=== PATIENT | male | born 1965 | race Caucasian/White ===

== ENCOUNTER → 2024-10-10 12:59 | Outpatient (REF) | payer OTHER, SELFPAY | LOC: HWRAD 12:59 | PROVIDERS: ATTENDING PHYSICIAN Physician Assistant; FAMILY PHYSICIAN Physician Assistant Medical | DX: E03.9 Hypothyroidism, unspecified (principal); C73 Malignant neoplasm of thyroid gland; E89.0 Postprocedural hypothyroidism | CPT/HCPCS: 76536 ==

== ENCOUNTER 2025-10-06 17:06 | Inpatient (IN) | payer BC, SELFPAY ==
[2025-10-06] VITALS (22 sets, daily range): BP systolic 102–152; BP diastolic 57–96; BMI 38.4; BMI 37.3
[2025-10-06] MEDS: CORDARONE IV (14:47)
[2025-10-06] MEDS: CORDARONE 259 MG IV (14:51)
[2025-10-06 14:53] LABS: Hematocrit 46.0 % (39.0-52.0); Hemoglobin 15.2 g/dL (13.0-18.0); Mean Corp Hgb Conc. 33.0 g/dL (33.0-37.0); Mean Corpuscular Volume 85.5 fL (80.0-94.0); Platelet Count 205 10^3/uL (130-400); Red Cell Dist. Width 14.0 % (11.5-14.5)
[2025-10-06] MEDS: LOW STRENGTH ASPIRIN 324 MG PO (15:02)
[2025-10-06 15:03] LABS: ALT (SGPT) 97 U/L (0-50); AST (SGOT) 94 U/L (17-59); Albumin 3.7 g/dl (3.5-5.0); Alkaline Phosphatase 56 U/L (38-126); Blood Urea Nitrogen 23 mg/dl (9-20); Calcium 8.0 mg/dl (8.4-10.2); Carbon Dioxide 16 mmol/L (22-30); Chloride 103 mmol/L (98-107); Estimated Creatinine Clearance 72 ml/min; Glucose 188 mg/dl (70-99); Potassium 3.6 mmol/L (3.5-5.1); Sodium 139 mmol/L (135-145); Total Protein 6.1 g/dl (6.3-8.2); eGFR 48.41
[2025-10-06] MEDS: MAGNESIUM SULFATE 50 IV (15:05)
[2025-10-06 15:09] LABS: Troponin I 0.048 ng/ml
--- NOTE | 2025-10-06 15:11 | ED.GENMED ---
History of Present Illness
General
Chief Complaint: Cardiac Symptoms
Time Seen by Provider: 10/06/25 14:27
History of Present Illness
History of Present Illness:
Patient is a 60-year-old male with history of thyroid cancer in remission, WENDY, hypertension presenting to the emergency department after ROSC. Per medics patient was complaining of lightheadedness dizziness and had a syncopal event. He had a
witnessed cardiac arrest. Bystander CPR was initiated. Initially fire department on scene with 2 shocks. Once medics arrived they gave additional 6 shocks. There was concern for V-fib V. tach and torsades. He did get a total of 3 epi, 300
amiodarone bicarb. Total downtime was 20 minutes. They were about to intubate patient when he was more awake and pulling at their hands so intubation was held off. At this time patient is been complaining of ongoing chest pain. He did have chest
pain prior to the event as well. No shortness of breath. No numbness tingling.
Phy Exam
Physical Exam
Physical Exam:
GENERAL: Appears unwell
HEENT: normocephalic, extraocular movements intact, moist oral mucosa
NECK: normal inspection
RESPIRATORY: Slightly tachypneic, clear to auscultation bilaterally, no crepitus
CARDIOVASCULAR: regular rate and rhythm
ABDOMEN/: soft, non-distended, non-tender to palpation, no rebound or guarding
EXTREMITIES: non-tender, no edema/swelling
NEUROLOGIC: awake and alert, confused, moves all extremities
SKIN: warm
Course
Orders/Labs/Results
Orders:
Orders
10/06/25 14:25
Amiodarone [Cordarone] 300 mg .ROUTE .STK-MED ONE
Sodium Bicarbonate 100 meq .ROUTE .STK-MED ONE
10/06/25 14:28
Electrocardiogram (*1) Urgent
Reason for Study: Chest Pain
Cardiac Monitoring- Treatment ONCE
EKG- Treatment ONCE
IV Insert/Care/Rem.- Treatment PRN
Chest X-ray Portable [CR Chest Portable - 1 View] Urgent
Comment:
Reason For Exam: cpr post cost
Reason Study Needs to be Portable: Patient Unstable
O2 Therapy [RESP] Urgent
Titrate/Wean O2 to maintain O2 sat greater than (%): 90
Special Instructions: Maintain sats >/=90%
Pulse Ox/spot Check [RESP] Urgent
Quantity: 1
Special Instructions: ON ROOM AIR
10/06/25 14:29
Amiodarone [Cordarone] 450 mg DEXTROSE 5% PVC-free BAG [D5W PVC-free BAG] 250 ml IV NOW
Initial Dose in mg/min:: 1
Duration of initial dose (hours):: 6
Subsequent dose in mg/min:: 0.5
Duration of subsequent dose (hours):: 18
Maximum dose in mg/min:: 1
Hold and notify provider if:: Heart rate < 60 BPM or SBP < 90 mmHg or MAP < 60 mmHg
10/06/25 14:30
Complete Blood Count/With Diff Urgent
Comprehensive Metabolic Panel Urgent
Free T4 Urgent
Magnesium Urgent
Comment: ADD ON
Manual Differential Urgent
TSH Reflex To Free T4 Urgent
Troponin I Urgent
10/06/25 14:46
Add On- LAB Urgent
Tests Added?: magnesium level
EPINEPHrine PF [Adrenalin] 1 mg .ROUTE .STK-MED ONE
10/06/25 14:49
Amiodarone [Cordarone] 450 mg DEXTROSE 5% PVC-free BAG [D5W PVC-free BAG] 250 ml IV NOW
Initial Dose in mg/min:: 1
Duration of initial dose (hours):: 6
Subsequent dose in mg/min:: 0.5
Duration of subsequent dose (hours):: 18
Maximum dose in mg/min:: 1
Hold and notify provider if:: Heart rate < 60 BPM or SBP < 90 mmHg or MAP < 60 mmHg
10/06/25 14:57
Electrocardiogram (*1) Urgent
Reason for Study: Chest Pain
Magnesium Sulfate 2 Gram/50 ml [Magnesium Sulfate] 2 gram in 50 ml IV NOW
10/06/25 14:58
EKG- Treatment ONCE
10/06/25 Dinner
NPO
Allow oral meds: Yes
Allow clear liquids: Sips of Clears
NPO with Ice Chips: Yes
10/06/25 15:01
Aspirin Chewable [Low Strength Aspirin] 324 mg PO NOW STA
10/06/25 15:16
Aspirin Chewable [Low Strength Aspirin] 324 mg .ROUTE .STK-MED ONE
10/06/25 15:17
Heparin 4,000 units IV NOW STA
Pharmacy Request to Place See Dose Instructions PO NOW STA
Discontinue all Active Warfarin orders?: Yes
10/06/25 15:18
Ondansetron Injectable [Zofran] 4 mg .ROUTE .STK-MED ONE
10/06/25 15:19
CT Cervical Spine W/o Iv Contr Urgent
Comment:
Reason For Exam: fall, syncopal event
CT Head W/o Iv Contrast Urgent
Comment:
Reason For Exam: rosc, syncopal event, hit head
Ondansetron Injectable [Zofran] 4 mg IV NOW STA
10/06/25 15:20
CT Chest PE Study Urgent
Comment:
Reason For Exam: syncopal event, chest pain
10/06/25 15:30
Heparin 75845 Units/250 ml 25,000 units in 250 ml IV PER PROTOCOL
Weight to be used for heparin protocol in kilograms (kg):: 139.2
Protocol:: Cardiac Tx/Acute Coronary
PTT Goal Range to be used:: PTT 73 to 111 seconds
Order type:: Initial
INITIAL Infusion Dose (UNITS/KG/hr) & then follow protocol:: 12 units/kg/hr
Infusion Dose in UNITS/hr & then follow protocol (UNITS/hr):: 1,000
INFUSION RATE in mL/hr & then follow protocol (mL/hr):: 10
PTT less than or equal to 64 seconds:: Increase rate by 200 units/hr (+ 2 mL/hr)
PTT 64.1 to 72.9 seconds:: Increase rate by 100 units/hr (+ 1 mL/hr)
PTT 73 to 111 seconds:: Target Range. No change in rate.
PTT 111.1 to 130.9 seconds:: Decrease rate by 100 units/hr (- 1 mL/hr)
PTT 131 to 199.9 seconds:: HOLD for 1 hr. Then decrease rate by 200 units/hr (- 2 mL/hr)
PTT greater than or equal to 200 seconds:: HOLD for 2 hrs & Notify Provider. Then decrease by 200 units/hr (-
2 mL/hr)
Lab follow-up:: Each change, PTT q6h until 2 consecutive are therapeutic. Then PTT
daily.
10/06/25 15:54
Type And Crossmatch [Type+Screen] Urgent
PTT Urgent
Comment: Obtain baseline before beginning heparin infusion if not already collected
Prothrombin Time Urgent
10/06/25 16:[address] See Dose Instructions IV DIRECTED
10/06/25 16:35
Admit/Transfer Patient As Directed
Co-Sign Provider:
Level of Care: Inpatient admission
Assign to:: ICU
Physician / Group: Hospitalist
Diagnosis: [place]
Reason for Hospitalization: [place]
Expected length of stay greater than two midnights?: Yes
ELOS- Estimated Length of Stay in days: 5
I certify the patient meets the requirements for IP care: Yes
PRN Pain Medication Management As Directed
May give lesser potent ordered pain med per pt: Yes
preference::
Protocol:: Medication orders for pain may be administered in a
manner that supports deferring to patient preference
when the pt is:
- Requesting an ordered lesser potent pain medication.
Least to most potent pain medications are defined
as: acetaminophen < NSAID < tramadol < opioids
(morphine, oxycodone, hydromorphone).
- Requesting a lesser dose of the same medication IF
ORDERED.
- Requesting a less intrusive route of administration
if both routes are prescribed by the provider (PO <
IV).
10/06/25 16:36
Code Status As Directed
Resuscitation Status: Full Code
10/06/25 17:48
Electrocardiogram (*1) Q3H
Reason for Study: Chest Pain
Comment: at admission and Q3H for total of 3, to be done with each troponin
0.9% Sodium Chloride 1000 ml [Nss] 1,000 ml IV 100 mls/hr
Acetaminophen [Tylenol] 1,000 mg PO DAILYPRN PRN mild pain
10/06/25 17:48
Activity As Directed
Activity Level: Bedrest
ECG as needed As Directed
ECG as needed for:: Chest Pain
Additional Instructions:: with chest pain x 2 episodes.
INT (Intravenous Needle Therapy) As Directed
Comment: maintain peripheral IV access
Intake/ Output As Directed
Frequency: Per unit guidelines
Pneumatic Compression Sleeves As Directed
Type: Knee high
Vital Signs As Directed
Frequency: q4h
Weight As Directed
Frequency: Daily
O2 Therapy [RESP] Routine
Nasal Cannula Liter Flow: 2 LPM
Titrate/Wean O2 to maintain O2 sat greater than (%): 90
Special Instructions: 2 liters/minute as needed for pulse oximetry less than 90%
DX Deep Vein Thrombosis Video Routine
10/06/25 18:08
Glycohemoglobin (HgbA1c) Routine
Troponin I Q3H
Comment: at admit & Q3H for 3 total including ED draws, obtain ECG with each level
10/06/25 20:48
Electrocardiogram (*1) Q3H
Reason for Study: Chest Pain
Comment: at admission and Q3H for total of 3, to be done with each troponin
10/06/25 21:08
Troponin I Urgent
10/06/25 22:01
PTT Urgent
10/06/25 23:48
Electrocardiogram (*1) Q3H
Reason for Study: Chest Pain
Comment: at admission and Q3H for total of 3, to be done with each troponin
Troponin I Q3H
Comment: at admit & Q3H for 3 total including ED draws, obtain ECG with each level
10/06/25 23:59
Troponin I Q3H
Comment: at admit & Q3H for 3 total including ED draws, obtain ECG with each level
10/07/25 06:00
Echo 2D MMode Color/Doppler [Echo 2D MMode Color/Doppler] IN AM
Reason for Study: s/p arrest
Cardiovascular Evaluation IN AM
Complete Blood Count/No Diff IN AM
Comprehensive Metabolic Panel IN AM
Levothyroxine [Synthroid] 137 mcg PO DAILY@0600
10/07/25 08:00
Amlodipine [Norvasc] 2.5 mg PO DAILY
Aspirin 325 mg PO DAILY
Multivitamin [Theragran] 1 tablet PO DAILY
Rosuvastatin Calcium [Crestor] 5 mg PO DAILY
Abnormal Lab Results
10/06/25 10/06/25
14:30 15:54
WBC 18.7 H 10^3/uL
(4.8-10.8)
Abs Neuts (Manual) 10.2 H 10^3/uL
(1.4-6.5)
Band Neutrophils 10 H %
(0-3)
PT 15.4 H Sec
(11.4-14.6)
Carbon Dioxide 16 L mmol/L
(22-30)
BUN 23 H mg/dl
(9-20)
Creatinine 1.6 H mg/dL
(0.7-1.3)
Glucose 188 H mg/dl
(70-99)
Calcium 8.0 L mg/dl
(8.4-10.2)
Magnesium 2.5 H mg/dl
(1.6-2.3)
AST 94 H U/L
(17-59)
ALT 97 H U/L
(0-50)
Troponin I 0.048 H* ng/ml
Total Protein 6.1 L g/dl
(6.3-8.2)
TSH (Reflex) 5.14 H uIU/ml
(0.47-4.68)
10/06/25 14:30
10/06/25 14:30
Vital Signs
Initial and Last Documented VS:
Initial Vital Signs
Temp Pulse Resp BP Pulse Ox
96.4 F L 92 18 119/57 94
10/06/25 14:31 10/06/25 14:31 10/06/25 14:31 10/06/25 14:31 10/06/25 14:31
Last Documented Vital Signs
Temp Pulse Resp BP Pulse Ox
98.3 F 77 19 143/88 95
10/06/25 20:30 10/06/25 20:00 10/06/25 20:00 10/06/25 20:00 10/06/25 20:00
MDM/Problems Addressed
Differential Diagnosis Includes:
Patient is a 60-year-old male with history of thyroid cancer in remission, hypertension presenting to the emergency department as a ROSC patient after a V-fib arrest. On arrival patient awake talking and complaining of chest pain. Vitals are
notable for hypoxia which is requiring nasal cannula. Exam is otherwise reassuring. Concern for ACS/metabolic derangement. Will check blood work and serial EKGs. Initial EKG per my interpretation not consistent with STEMI. Aspirin was given for
ongoing chest pain. Initial troponin elevated. I did discuss with cardiology who stated no Sign Designer at this time. Portable chest x-ray per my interpretation without pneumothorax or obvious rib fracture. Discussed with hospitalist who accepted
patient to their service. Will obtain CT head neck PE protocol given the syncopal event prior to arrest. Critical troponin came back elevated. Discussed with cardiology. Will give heparin. Cardiology will evaluate patient at bedside.
*Pulse Oximetry
SaO2: 96
Nasal Cannula flow liters per minute: 6
Patient hypoxic: yes
*Critical Care Note
Total Time (30-74mins, 75-104mins- exclusive of procedures): 78
comment:
Critical care statement: A total of 78 minutes of critical care time was provided for this patient. This includes management of unstable vital signs, evaluation of the patient at bedside, reviewing the patient's pertinent medical records, ordering
and reviewing studies, arranging urgent treatment with development of a management plan, evaluating patient's response to treatment, frequent reassessment, and discussion with consultants. This time was separate from time utilized to perform the
aforementioned documented procedures.
ED Attending Note
-
Portions of this chart may have been created with voice recognition software.� Occasional wrong word or��sound alike� substitutions may have occurred due to the inherent limitations of voice recognition software.
Discharge Plan
Departure
Patient Disposition: Admit
Date of Disposition: 10/06/25
Time of Disposition: 15:16
Presentation/result/management discussed w/ accepting MD/DO: Hospitalist
Discharge Problem:
Cardiac arrest
Interventions
Interventions:
*Risk Screen - Suicide Last Done: 10/06/25 18:29
*General Assessment Last Done: 10/06/25 14:31
*Neglect/Abuse Screening Last Done: 10/06/25 14:31
*ED COVID-19 Vaccine History Last Done: 10/06/25 14:31
*ED Influenza Vaccine History Last Done: 10/06/25 14:31
[facility] Fall Risk Assessment Tool Last Done: 10/06/25 14:50
*Nursing Disposition Last Done: 10/06/25 17:52
ED- Pulmonary Assessment Last Done: 10/06/25 14:55
ED- Cardiac Assessment Last Done: 10/06/25 14:55
Discharge Date and Time
Discharge Date/Time: 10/06/25 17:53
[2025-10-06 15:19] LABS: Magnesium 2.5 mg/dl (1.6-2.3)
[2025-10-06] MEDS: ZOFRAN 4 MG IV (15:19)
[2025-10-06] MEDS: HEPARIN 4000 UNITS IV (16:00)
--- NOTE | 2025-10-06 16:00 | CON.CAR ---
Consultation
Consultation Request
Date/Time Consultation Requested: 10/06/2025 14: 30
Date/Time Consultation Performed: 10/06/2025 15: 15
Requesting Provider: Caesar
Performing Provider: Agus
Reason for Consultation: Status post arrest
Medical History
-
Chief Complaint: Status post arrest
History of Present Illness:
Mlies has a history of hypertension and sleep apnea as well as thyroid cancer status post resection. He normally does not exercise. He works in IT. He show pulse noted today. He was in a house later and went to let out the dog and felt very dizzy
and had arrest. Strip to the scene appeared to show torsades. Of note he denied chest pain before coming to the ER. He received CPR epinephrine and amiodarone and was shocked 8 times and is now in sinus rhythm. He complains of chest discomfort
that is worse with taking a deep breath
Past Medical History
Past Medical History: Other (See HPI)
Past Surgical History: Cholecystectomy and Other (Thyroid cancer resection, status post C4 and C5 discectomy)
Social History
Tobacco: Non-Smoker
Alcohol: None
Drug: None
Personal:
Living: With Family
Employment: Employed (in IT)
Family History
Family History: Other (No family history of premature CAD, father at 85 of colon cancer, mother at 88 of lung cancer)
Allergies / Home Medications
Allergy/AdvReac Type Severity Reaction Status Date / Time
No Known Allergies Allergy Verified 03/16/23 06:17
�Medication �Instructions �Recorded �Confirmed �Type
levothyroxine 150 mcg tablet 150 mcg PO DAILY 02/18/23 03/16/23 History
Saccharomyces boulardii 250 mg 250 mg PO BID #10 caps 03/17/23 Rx
capsule (Florastor)
acetaminophen 500 mg tablet 1,000 mg (2 x 500 mg) PO Q8H #0 03/17/23 03/16/23 Rx
tabs
cephalexin 500 mg tablet 500 mg PO QID #20 tabs 03/17/23 Rx
docusate sodium 100 mg capsule 100 mg PO BID #30 caps 03/17/23 Rx
pregabalin 75 mg capsule (Lyrica) 75 mg PO BID #15 caps 03/17/23 Rx
sennosides 8.6 mg tablet (Senna 17.2 mg (2 x 8.6 mg) PO BIDPRN PRN 03/17/23 Rx
Laxative) constipation #30 tabs
tramadol 50 mg tablet 50 mg PO Q6H PRN moderate-severe 03/17/23 Rx
pain #30 tabs
valsartan 320 1 tab PO DAILY #1 tab 03/17/23 03/16/23 Rx
mg-hydrochlorothiazide 25 mg tablet
Review of Systems
-
History Source: Patient
All other systems: Negative unless noted
Constitutional: No Symptoms
EENT: No Symptoms
Respiratory: No Symptoms
Cardiac: Chest Pain
Abdomen/GI: No Symptoms
: No Symptoms
Musculoskeletal: No Symptoms
Skin: No Symptoms
Neurological: Dizzy
Endocrine: No Symptoms
Hematologic/Lymphatic: No Symptoms
Physical Exam
Vital Signs
Temp Pulse Resp BP Pulse Ox
96.4 F L 85 19 109/73 96
10/06/25 14:31 10/06/25 14:50 10/06/25 14:50 10/06/25 14:50 10/06/25 15:16
Lab Results
10/06/25 14:30
10/06/25 14:30
Troponin I 0.048 ng/ml H* 10/06/25 14:30
General: Well developed, well nourished in NAD.
Neck: Supple, no JVD, HJR, carotids +2 B/L, no bruits bilaterally.
Heart: Non displaced PMI, RRR, no murmurs, No S3, S4, no rubs.
Lungs: Clear to auscultation bilaterally, no wheeze, rhonchi, rubs bilaterally,
normal expiratory phase.
Abdomen: Normal bowel sounds, soft, non-tender, non-distended.
Extremities: No clubbing, cyanosis or edema bilaterally.
Neuro: Grossly nonfocal, awake, alert and oriented x3.
Impression / Plan
-
Impression:
Status postcardiac arrest with possible torsades as initial rhythm
Chest pain worse with taking a deep breath possibly due to CPR
Hypertension
Sleep apnea
History of papillary carcinoma thyroid status post thyroidectomy
Renal insufficiency
Abnormal LFTs possible shock liver
CT of chest: Negative for pulmonary embolism
Impression:
Patient presented with cardiac arrest with rhythm appearing to be torsades
ECG okay at present
He has chest pain is worse with taking a deep breath
Will treat with IV heparin
Eventual catheterization but may need to wait because there is renal insufficiency at present
Critical care time 35 minutes so far
Data Reviewed
-
EKG: Tracing Personally Visualized and interpreted
Radiology: Report Reviewed by me
CT Scan: Report Reviewed by me
Medical Tests (Nuc Med, Echo etc): Report Reviewed by me
Labs: Labs Reviewed by me
Old Records: Reviewed
[2025-10-06] MEDS: HEPARIN 25000 UNITS/250 ML IV (16:02)
[2025-10-06 16:12] LABS: INR 1.21; PT 15.4 Sec (11.4-14.6)
[2025-10-06 16:13] LABS: APTT 32.5 Sec (23.4-35.0)
--- NOTE | 2025-10-06 16:18 | HPS.HSE ---
Family Physician
-
Family Physician: Yvette Dee
Chief Complaint
-
TN
History of Present Illness
60 man presents after ROSC. He was complaining of lightheadedness dizziness and had a syncopal event. He then had a witnessed cardiac arrest. Bystander CPR was initiated. Initially EMS on scene gave 2 shocks. Medics arrived and gave additional
6 shocks. There was concern for V-fib V. tach and torsades. He received a total of 3 epi, 300 amiodarone bicarb. Total downtime was 20 minutes. Intubation was held off. At time of my interview patient had ongoing chest pain. No shortness of
breath. No numbness tingling. Poor short term memory per nurse's report.
Medical History
Past Medical History
Past Medical History: Reports Other
Additional Past Medical History:
Severe obstructive sleep apnea
Colon polyps
Snoring
Status post cholecystectomy
Hyperlipidemia,
Elevated serum creatinine
Status post complete thyroidectomy
Obesity (BMI 30-39.9)
History of thyroid cancer
Stage 3a chronic kidney disease
Prediabetes
Essential hypertension
Past Surgical History: Reports Other
Additional Past Surgical History:
Thyroidectomy
discectomy
Social History
Unable to obtain full social history at this time due to: Acuity
Tobacco: Non-smoker
Alcohol: None
Drug: None
Personal:
Family History
Family History: Not pertinent
Allergies / Home Medications
Allergies reflects when Allergies were last updated in [employer].
Home Medications with original date entered in [employer]
Allergy/Medication List:
Allergies
Allergy/AdvReac Type Severity Reaction Status Date / Time
No Known Allergies Allergy Verified 03/16/23 06:17
Home Medications
acetaminophen 500 mg tablet 1,000 mg PO DAILYPRN PRN mild pain 10/06/25
amlodipine 2.5 mg tablet 2.5 mg PO DAILY 10/06/25
levothyroxine 137 mcg tablet 137 mcg PO DAILY 10/06/25
rosuvastatin 5 mg tablet 5 mg PO DAILY 10/06/25
therapeutic multivitamin 1 tab PO DAILY 10/06/25
valsartan 320 mg tablet 320 mg PO DAILY 10/06/25
Review of Systems
-
Unable to obtain full review of systems at this time due to: Acuity
History Source: Transfer Record and Physician
A 12 point ROS was completed and negative except as noted: Yes
Cardiac: Reports Chest Pain
Physical Exam
Vital Signs
Vital Signs
Temp Pulse Resp BP Pulse Ox
96.4 F L 83 16 119/71 96
10/06/25 14:31 10/06/25 16:00 10/06/25 16:15 10/06/25 16:00 10/06/25 15:16
Physical Exam
General: Well Developed, Well Nourished, No Apparent Distress, Comfortable and Obese; No Conversant
HEENT: Anicteric, Hooks Conjunctivae, Nose Appears Normal and Ears Appear Normal
Respiratory: Clear
Cardiac: S1/S2 and Regular Rhythm
GI: Soft, Non Tender and Non Distended
Musculoskeletal: No Clubbing and No Cyanosis
Skin: Warm and Dry; No Rash
Neuro: Awake and Alert
Psych: Calm
Laboratory Results
-
10/06/25 14:30
10/06/25 14:30
Laboratory Results
PT 15.4 Sec (11.4-14.6) H 10/06/25 15:54
INR 1.21 10/06/25 15:54
APTT 32.5 Sec (23.4-35.0) 10/06/25 15:54
APTT Cancelled 10/06/25 15:54
Total Bilirubin 1.0 mg/dl (0.2-1.3) 10/06/25 14:30
AST 94 U/L (17-59) H 10/06/25 14:30
ALT 97 U/L (0-50) H 10/06/25 14:30
Alkaline Phosphatase 56 U/L (38-126) 10/06/25 14:30
Troponin I 0.048 ng/ml H* 10/06/25 14:30
Data Reviewed
-
Lab Data: Labs Reviewed by me
Impression/Plan
-
IMPRESSION:
60 man with TN, down for 20 minutes. SROC.
BUN/Creat 23/1.6, baseline appears to be 22/1.2
Troponin 0.048
WBC 18.7
K 3.6
PLAN:
1. TN with SROC, 20 minutes down time
Admit to ICU level care
IV heparin
Cardiology consult
Cardiology recommends:
'Patient presented with cardiac arrest with rhythm appearing to be torsades
ECG okay at present
He has chest pain is worse with taking a deep breath
Will treat with IV heparin
Eventual catheterization but may need to wait because there is renal insufficiency at present.'
Trend troponin
Keep pads on chest
2. Ongoing chest pain - may be complication of CPR
Follow ECGs
Analgesia as needed
3. Short term memory problems - may be from being without natural circulation for 20 minutes
Discuss with unix administrator
Monitor and follow
4. Stage 3a CKD with creatinine increased to 1.6 from 1.2
No obvious CHF at this time
Gentle IV saline
avoid further dye unless critical
5. Hypothyroidism
Check TSH
Adjust meds as needed
6. Severe WENDY
Observe in ICU tonight
May neede CPAP if symptomatic
Full code
IV heparin for DVTp
[2025-10-06 16:50] LABS: Absolute Neutrophils -Man Diff 10.2 10^3/uL (1.4-6.5); Platelets Checked Yes
[2025-10-06 16:51] LABS: Normal RBC Morphology Yes; Total Cells Counted 100
[2025-10-06 18:10] LABS: Glucose - Point of Care 163 mg/dl (70-99)
[2025-10-06 18:46] LABS: Troponin I 2.520 ng/ml
[2025-10-06] MEDS: NSS 1000 IV (18:47)
[2025-10-06] MEDS: TYLENOL 1000 MG PO (18:51)
--- NOTE | 2025-10-06 19:30 | PTCARENOTE ---
At 17:45 New admission from Emergency room . Admission DX: post WA; patient Received on Heparin drip 1000-infusing via Left FA # 18 ; Amiodarone 1mcg via left arm # 20; patient's and daughter at bedside, updates provided
AAO x 3 c/o of sternum pain 5 out of 10; describes pain aching; increase in inspiration
Normal Sinus Rhythm 73 PVC no edema
on 6L via nasal canula 93%
Abdomen soft round, family reports of loose stool for passed few days c/o of nausea, No vomiting
Call rojas within reach
--- NOTE | 2025-10-06 21:30 | PTCARENOTE ---
Report received from previous shift RN [id number]. Pt in bed with family members at bedside. Pt is AAO3, however, very forgetful of events from today and has very short term memory retention. Pt reports sternal discomfort from CPR earlier in day. Shallow
respirations, lung sounds are clear throughout, decreased in b/l base, pox 93-95% on 6L O2 via nasal cannula. Deep breathing/cough encouraged. Telemetry rhythm reveals SR w oc PVCs, HR 70's, no edema noted, palpable peripheral pulses present, knee
high SCDs placed per order. +BS, abdomen round/obese/nontender. Pt is NPO x sips/meds/ice. Pt's spouse states pt had loose stools 'a few days ago' but has subsided. Voiding yellow urine without difficulty, urinal at bedside. Pt has dressing on R
bridges from D/C'd IO site. R AC int received w Amiodarone infusion at 1 mg/min; protocol followed, see flowsheet for details. L AC int received with Heparin infusion at 1000 units/hr. L FA int received with NSS 100ml/hr. 2100 troponin sent to lab per
order/EKG performed and reviewed w shine worker SANA Diamond, placed on chart. Call rojas within reach, safe environment maintained. Bed alarm on and monitoring.
[2025-10-06 21:50] LABS: Troponin I 4.280 ng/ml
[2025-10-06 22:18] LABS: APTT 59.2 Sec (23.4-35.0)
[2025-10-07] VITALS (22 sets, daily range): BP systolic 130–160; BP diastolic 60–91; BMI 37.5
[2025-10-07] MEDS: CORDARONE 259 MG IV (00:03)
[2025-10-07 00:39] LABS: Troponin I 4.300 ng/ml
--- NOTE | 2025-10-07 00:59 | PTCARENOTE ---
Pt resting quietly and intermittently sleeping when undisturbed. Continuing to follow protocol for Heparin and Amiodarone infusions, see flowsheet on worklist for full details. Pt's family brought in CPAP from home, RT set patient up and placed pt
on device w O2. Lung sounds remain decreased in b/l base, now w fine crackles in RLL. Cough/deep breathing encouraged. Will continue to monitor.
[2025-10-07] MEDS: NSS 1000 IV (04:13)
[2025-10-07 04:22] LABS: Hematocrit 42.4 % (39.0-52.0); Hemoglobin 14.5 g/dL (13.0-18.0); Mean Corp Hgb Conc. 34.2 g/dL (33.0-37.0); Mean Corpuscular Volume 82.2 fL (80.0-94.0); Platelet Count 178 10^3/uL (130-400); Red Cell Dist. Width 14.1 % (11.5-14.5)
[2025-10-07 04:45] LABS: ALT (SGPT) 116 U/L (0-50); AST (SGOT) 115 U/L (17-59); Albumin 3.6 g/dl (3.5-5.0); Alkaline Phosphatase 56 U/L (38-126); Blood Urea Nitrogen 25 mg/dl (9-20); Calcium 7.8 mg/dl (8.4-10.2); Carbon Dioxide 23 mmol/L (22-30); Chloride 108 mmol/L (98-107); Estimated Creatinine Clearance 88 ml/min; Glucose 114 mg/dl (70-99); HDL Cholesterol 27 mg/dl; LDL Cholesterol, Calculated 56 mg/dl; Potassium 3.9 mmol/L (3.5-5.1); Sodium 139 mmol/L (135-145); Total Protein 6.3 g/dl (6.3-8.2); Very Low Density Lipoprotein 13 mg/dl (0-30); eGFR > 60.00
[2025-10-07 05:00] LABS: Troponin I 3.020 ng/ml
[2025-10-07 05:13] LABS: APTT 66.7 Sec (23.4-35.0)
[2025-10-07] MEDS: SYNTHROID 137 MCG PO (05:44)
[2025-10-07] MEDS: THERAGRAN 1 TABLET PO (07:48)
[2025-10-07] MEDS: NORVASC 2.5 MG PO (07:48)
[2025-10-07] MEDS: CRESTOR 5 MG PO (07:49)
[2025-10-07] MEDS: TYLENOL 650 MG PO (07:49)
[2025-10-07] MEDS: ASPIRIN 325 MG PO (07:49)
--- NOTE | 2025-10-07 08:05 | CON.INTV ---
Addendum entered and electronically signed by Janak Duron MD 10/07/25 13:22:
Patient stable for transfer to IVU
- Copy Director service will sign off, please call as needed.
Addendum entered and electronically signed by Janak Duron MD 10/07/25 13:11:
...
Original Note:
Consultation
Consultation Request
Date/Time Consultation Requested: 10/06/2025
Date/Time Consultation Performed: 10/07/2025
Medical History
-
Chief Complaint: Syncope
History of Present Illness:
Mr. Zuniga is a 60 y/o M with PMH of papillary thyroid ca s/p thyroidectomy, obstructive sleep apnea, hypertension who is in the ICU for management of postcardiac arrest with ROSC. He presented to ED on 10/06/2025 after return of spontaneous
circulation. Per records he felt lightheaded, dizzy, chest pain and had a syncope. He had a witnessed cardiac arrest and CPR was initiated bystander. He received 2 shocks by fire department initially and 6 additional shocks by medics once they
arrived. He got a total of 3 epi, 300 amiodarone for concerns of V-fib/V. tach/torsades. After 20 minutes of downtime he was more awake and complained about having ongoing chest pain. He was never intubated.
At the ED he had leukocytosis, elevated troponin, multiple EKGs showed normal sinus rhythm with occasional PVCs. Chest x-ray showed cardiomegaly and mild CHF. CT scan of the head and cervical spine W/o IV contrast were unremarkable. PE was ruled
out by CTA, it was remarkable for 3 mm right middle lobe pulmonary nodule.
Cardiology was consulted, left heart cath was on hold due to SON on CKD stage IIIa. He received magnesium sulfate for possible Torsades. He is on heparin and amiodarone ggt.
This morning he reports using his CPAP and having good sleep. He complains about chest pain, rates it 3/10, nonradiating, shows the sternum area. He reports feeling a little bit off shortness of breath secondary to chest pain. He does not
remember anything else about the event. He remembers shoveling snow yesterday morning.
Vitals at bedside 141/75, HR 70, RR 15, 2L NC with O2 sat 95%.
Labs this morning include Troponin I 3020, WBC 12.5, APTT 66.7, K 3.9, Ca 7.8, corrected Ca 8.2, Mg 2.2, AST 115, ALT 116, creatinine 1.3, GFR > 60
Past Medical History
Past Medical History: HTN, Hypercholesterolemia, Hypothyroidism and Other (Colon polyps, obstructive sleep apnea)
Past Surgical History: Cholecystectomy and Other (Discectomy)
Social History
Tobacco: Non-smoker
Alcohol: None
Drug: None
Personal:
Allergies / Home Medications
Allergies
Allergy/AdvReac Type Severity Reaction Status Date / Time
No Known Allergies Allergy Verified 03/16/23 06:17
Home Medications
�Medication �Instructions �Recorded �Confirmed �Last Taken �Type
acetaminophen 500 mg tablet 1,000 mg PO DAILYPRN PRN mild pain 10/06/25 10/06/25 Unknown History
amlodipine 2.5 mg tablet 2.5 mg PO DAILY Blood Pressure 10/06/25 10/06/25 Unknown History
levothyroxine 137 mcg tablet 137 mcg PO DAILY Thyroid 10/06/25 10/06/25 Unknown History
rosuvastatin 5 mg tablet 5 mg PO DAILY High Cholesterol 10/06/25 10/06/25 Unknown History
therapeutic multivitamin 1 tab PO DAILY Supplement 10/06/25 10/06/25 Unknown History
valsartan 320 mg tablet 320 mg PO DAILY Blood Pressure 10/06/25 10/06/25 Unknown History
Review of Systems
-
History Source: Patient
Constitutional: No Symptoms
EENT: No Symptoms
Respiratory: Trouble Breathing
Cardiac: Chest Pain
Abdomen/GI: No Symptoms
: No Symptoms
Musculoskeletal: No Symptoms
Skin: No Symptoms
Neuro: No Symptoms
Endocrine: No Symptoms
Hematologic/Lymphatic: No Symptoms
Vitals / Labs / Diagnostic Testing
Vital Signs
Temp Pulse Resp BP Pulse Ox
98 F 70 15 141/75 94
10/07/25 07:19 10/07/25 07:48 10/07/25 07:00 10/07/25 07:48 10/07/25 07:55
Lab Data
10/07/25 04:12
10/07/25 04:12
Laboratory Results
10/06/25 10/06/25 10/06/25
15:54 15:54 22:01
PT 15.4 H
INR 1.21
APTT 32.5 Cancelled 59.2 H
10/07/25
04:12
PT
INR
APTT 66.7 H
Diagnostic Testing:
Physical Exam
-
HEENT: Normocephalic
Cardiovascular: S1/S2 and Regular Rhythm
Respiratory: Clear and Other (Diminished breath sounds bilaterally at the base of the lungs)
GI: Soft, Non Distended and Non Tender
Neurology: Awake, Oriented and No Motor Deficits
Skin: Warm and Dry
General: Comfortable
Assessment
-
Impression
Mr. Zuniga is a 60 y/o M with PMH of papillary thyroid ca s/p thyroidectomy, obstructive sleep apnea, hypertension who is in the ICU for management of postcardiac arrest with ROSC. He is hemodynamically stable. WBC remain elevated 12.5, they are
decreasing from 18.7 on presentation. He is on heparin and amiodarone drip. Electrolyte abnormalities are repleted. His kidney function is improving possible left heart cath today.
Plan
Cardiac arrest 2/2 arrhythmia, DDx V-fib/V. tach/torsades
- high likely from ACS exacerbated by exertion- shoveling snow
- No known Hx of heart disease
- Admitted to ICU
- Cardiology on board-high likely 2/2 torsades, left heart cath was on hold 2/2 SON
- Kidney function improved-possible left heart cath today
- Trend troponin - downtrending from 4300 to 3020
- Continue heparin drip until left heart cath
- Monitor APTT level
- Echo pending
Electrolyte abnormality
-K 3.9 - 40mEq PO K repleted
-Mg 2.2
-Calcium 7.8, corrected calcium 8.2 - given calcium gluconate 1 g
-Goal K> 4, Mg>2
Short term amnesia
-High likely 2/2 hypoxia during cardiac arrest, downtime 20 minutes
-If does not improve in couple days may consider MRI for possible watershed infarcts
SON on chronic kidney disease stage III a
- Baseline creatinine 1.2, on admission 1.6
- GFR and creatinine improving
- Continue IV fluids 50 mL/h
Essential hypertension
- Continue amlodipine 2.5 mg
- Hold valsartan
3 mm right middle lobe pulmonary nodule on chest CT scan
-Non-smoker
-f/u outpatient
Obstructive sleep apnea
- Continue using CPAP
- Monitor night pulse ox
Hypothyroidism
- Continue levothyroxine
DVT prophylaxis: IV heparin
Full code
--- NOTE | 2025-10-07 08:30 | PTCARENOTE ---
Received pt in bed. AOx3, forgetful of events leading up to admission to hospital. Pleasant and cooperative. Weaned to 2L NC this AM, sating 95%. LS diminished. C/o sternal pain, 650mg PO Tylenol given. VSS. NSR on monitor. Heparin gtt @
1300units/hr, PTT due @ 1115. Amio gtt @ 0.5mg/min, NS @ 100ml/hr. NPO except meds and sips. Awaiting ECHO and CARDs evaluation. Full Assessment as documented.
[2025-10-07 09:29] LABS: Glycohemoglobin (HgbA1c) 5.7 % (4.0-5.9)
[2025-10-07 10:12] LABS: Magnesium 2.2 mg/dl (1.6-2.3)
[2025-10-07] MEDS: KCL 40 MEQ PO (10:15)
[2025-10-07 11:48] LABS: APTT 56.2 Sec (23.4-35.0)
[2025-10-07] MEDS: CALCIUM GLUCONATE 100 IV (11:48)
--- NOTE | 2025-10-07 11:55 | W.PN.CARDCBS ---
Today's Communication / Plan
-
Change to oral amiodarone
Cardiac catheterization
EP consult
Likely ICD implant prior to discharge
Impression / Plan
-
Impression:
Status postcardiac arrest with possible torsades as initial rhythm
Chest pain worse with taking a deep breath possibly due to CPR
Hypertension
Sleep apnea
History of papillary carcinoma thyroid status post thyroidectomy
Renal insufficiency
Abnormal LFTs possible shock liver
CT of chest: Negative for pulmonary embolism
Impression:
He looks remarkably well following cardiac arrest with polymorphic VT requiring 8 defibrillations.
Ironically although VT was polymorphic, QT interval was normal.
He did not have evidence of an ST segment elevation NM which would typically be seen under this circumstance. Troponin has risen only minimally.
His creatinine has improved to 1.3.
Switch to oral amiodarone.
Continue heparin until cardiac catheterization which will be performed later today.
Total time 34 minutes.
Progress Note - Qa Tester
Subjective
Date of Service: October 07, 2025:
60-year-old man with [id number] cardiac arrest, by report, VT was polymorphic, required multiple defibrillations
PMH: Cholecystectomy, thyroid cancer, cervical discectomy, iatrogenic hypothyroidism, hypertension, hyperlipidemia
Current meds amlodipine 2.5 daily, normal saline at 50 an hour, levothyroxine 137 mcg daily, rosuvastatin 5 mg a day, aspirin, IV heparin, IV amiodarone
152/90, pulse 68, respiratory rate 21, afebrile, 95%, weight is 136.3 kg, complaining of some soreness in his chest but looks very well, head neck exam unremarkable lungs clear, regular rate and rhythm, abdomen obese extremities without clubbing
cyanosis or edema
White count 12.5, hemoglobin 14.5, BUN and creatinine are 25 and 1.3, peak troponin is 4.3, TSH is 5.14
Echo is pending
Chest CT: Pulmonary nodule
Head CT: NAD
ECG: Normal
Objective
Labs:
10/07/25 04:12
10/07/25 04:12
Labs
Hgb 14.5 g/dL (13.0-18.0) 10/07/25 04:12
Hct 42.4 % (39.0-52.0) 10/07/25 04:12
Plt Count 178 10^3/uL (130-400) 10/07/25 04:12
PT 15.4 Sec (11.4-14.6) H 10/06/25 15:54
INR 1.21 10/06/25 15:54
APTT 66.7 Sec (23.4-35.0) H 10/07/25 04:12
Sodium 139 mmol/L (135-145) 10/07/25 04:12
Potassium 3.9 mmol/L (3.5-5.1) 10/07/25 04:12
BUN 25 mg/dl (9-20) H 10/07/25 04:12
Creatinine 1.3 mg/dL (0.7-1.3) 10/07/25 04:12
Glucose 114 mg/dl (70-99) H 10/07/25 04:12
Troponins
10/06/25 10/06/25 10/06/25
14:30 18:08 21:08
Troponin I 0.048 H* 2.520 H* D 4.280 H* D
10/06/25 10/06/25 10/07/25
23:57 23:57 04:12
Troponin I 4.300 H* Cancelled 3.020 H* D
Vital Signs and I&O:
Vital Signs
Temp Pulse Resp BP Pulse Ox
36.6 C 68 21 152/90 95
10/07/25 11:01 10/07/25 11:00 10/07/25 11:00 10/07/25 11:00 10/07/25 11:00
Vital Signs
Temp Pulse Resp BP Pulse Ox
36.6 C 68 21 152/90 95
10/07/25 11:01 10/07/25 11:00 10/07/25 11:00 10/07/25 11:00 10/07/25 11:00
Intake & Output
10/05/25 10/06/25 10/07/25 10/08/25
07:59 07:59 07:59 07:59
Intake Total 2053.0 / 2053.0 339.1 / 339.1
Output Total 900 / 900
Balance 1153.0 / 1153.0 339.1 / 339.1
Physical Exam
Physical Exam
See above
--- NOTE | 2025-10-07 12:46 | ITS.CL.CATH ---
Industrial Methods Consultant - Catheterization
Cardiac Catheterization
Procedure Report:
LEFT HEART CATHETERIZATION
Date of Procedure: October 07, 2025
Referring:Edwar Dos Santos MD
PROCEDURES:
1. Left heart catheterization, coronary angiogram.
2. Moderate sedation.
INDICATION: Status postcardiac arrest with concern for possible torsades de point
ACCESS: Right radial artery, 6Fr. sheath, under US guidance.
HEMODYNAMICS : (mmHg)
AO (s/d) : 119/70
LVEDP : 18
No significant gradient across the aortic valve to suggest aortic stenosis.
CORONARY FINDINGS
Dominance: Right
Left Main Trunk (LMT): Large caliber vessel that gives rise to the LAD and LCx branches and is free of angiographic disease.
Left Anterior Descending Artery (LAD): Large caliber vessel that gives off 2 major diagonal branches as it courses along the anterior inter-ventricular groove before wrapping around the cardiac apex. Mid LAD has 30 to 40% tubular stenosis. PATSY-3
flow into the distal vessel
Left Circumflex Artery (LCx): Large caliber vessel that gives off 2 major obtuse marginal (OM) branches as it courses along the atrio-ventricular (AV) groove. The LCx and its branches are free of angiographic disease.
Right Coronary Artery (RCA): Large caliber dominant vessel that gives rise to the posterior descending artery (RPDA) and postero-lateral ventricular (RPLV) branches distally. The RCA and its branches are free of angiographic disease.
SEDATION: 27 minutes of procedural sedation was utilized. IV Midazolam and IV Fentanyl were administered. An independent biomedical equipment tech was present to assist with and help manage the patient's level of consciousness and physiologic status.
Closure Device: There were no immediate intra-procedural complications. The sheath was pulled in the specialist employee labor relations and a vascular-band applied to the right wrist for radial artery hemostasis using the patent hemostasis technique.
CONCLUSIONS
1. No obstructive coronary artery disease. Mid LAD has 30 to 40% tubular stenosis. PATSY-3 flow into the distal vessel
2. Elevated LVEDP at 18 mmHg
RECOMMENDATIONS
1. Wean radial band per protocol. Monitor right hand perfusion and for bleeding from the radial site following removal of the vascular-band following trans-radial access.
2. Continue aggressive medical therapy and risk factor modification for secondary CAD prevention.
3. Hydrate with normal saline to mitigate the risk of contrast-induced acute kidney injury.
4. Defer to electrophysiology as patient will likely need ICD prior to discharge for secondary prevention.
Tash Pace MD, FAC, [facility]
Copy to:Edwar Dos Santos MD and Luis Fernando Goldsmith MD
[2025-10-07] MEDS: HEPARIN 25000 UNITS/250 ML IV (12:53)
--- NOTE | 2025-10-07 13:45 | W.PN.HOSP.TC ---
Today's Communication/Plan
-
Assessment / Plan
Assessment / Plan
Postcardiac arrest with initial rhythm suspected to be torsades
S/p defibrillation multiple times
Now on IV Amio, transition to oral antibiotic per cardiology
Obtain 2D echocardiogram
IV heparin drip
Creatinine improving
Plan for LHC later today
Monitor on telemetry
Hypertension
Continue antihypertensives
Hypothyroidism
Continue levothyroxine
Hyperlipidemia
Continue Crestor
at bedside updated
Anticipated Discharge: > 48 hours
Subjective/Interval History
-
Date of Service: October 07, 2025
Objective Data
-
Labs:
Laboratory Results
10/07/25 10/07/25 10/07/25
04:12 11:15 18:00
WBC 12.5 H
Hgb 14.5
Hct 42.4
Plt Count 178
APTT 66.7 H 56.2 H Pending
Sodium 139
Potassium 3.9
Chloride 108 H
Carbon Dioxide 23
BUN 25 H
Creatinine 1.3
Glucose 114 H
Calcium 7.8 L
Total Bilirubin 0.6
AST 115 H
ALT 116 H
Alkaline Phosphatase 56
Vital Signs:
Vital Signs
Temp Pulse Resp BP Pulse Ox
98 F 68 21 152/90 95
10/07/25 11:01 10/07/25 11:00 10/07/25 11:00 10/07/25 11:00 10/07/25 11:00
I&O
10/06/25 10/07/25 10/08/25
06:59 06:59 06:59
Intake Total 1693.6 / 1823.3 811.9 / 811.9
Output Total 900 / 900 200 / 200
Balance 793.6 / 923.3 611.9 / 611.9
Physical Exam
-
General: Well Developed, Well Nourished and No Apparent Distress
HEENT: Normocephalic and Atraumatic
Respiratory: Clear to Auscultation
Cardiac: Regular Rhythm and S1/S2
GI: Soft, Nontender, Nondistended and Normal Bowel Sounds
Genito-urinary: No Costovertebral Tender
Musculoskeletal: No Clubbing, No Cyanosis and No Edema
Skin: Warm and Dry
Neuro: Awake and AO x 3
Psych: Calm
--- NOTE | 2025-10-07 15:52 | CM ---
I.A: Completed By JAY JAY Santillan
Patient lives with his in a 2 STH, 2 STI, 13 STI. DME: CPAP Only via [employer]. No VN/PT, had Outpatient in the past.
PCP: Yvette HERNANDEZ
Pharm: [facility]
Patient has transport home when ready. Anticipate Home No Needs.
[2025-10-07] MEDS: PACERONE 400 MG PO ×2 (15:56→22:30)
--- NOTE | 2025-10-07 16:08 | CM ---
Reviewed chart. Mr. Zuniga was transferred to IVU. Met with and Mrs. Zuniga to review discharge plans. He states prior to admission he resides with his spouse in a two story home with two steps to enter. He states he has a full flight of
steps to get to bedroom/full bathroom. He states he has a powder room on the first floor. He states prior to admission he was independent with ambulation and adls. He states he has a CPAP Machine at home. He states he has a prescription plan.
Medical work up in progress. The discharge plan is to return home when medically stable.
--- NOTE | 2025-10-07 17:33 | PTCARENOTE ---
Pt received at 1420 post cath. Right radial site WNL. TR band removed at 1700 without any issues. Denies any chest pain or sob. Voiding large amounts of clear yellow urine in the urinal. SR, rate in the 70's to 80's. OOB to the BR and the chair post
bedrest. No c/o offered.
[2025-10-08] VITALS (12 sets, daily range): BP systolic 138–166; BP diastolic 72–89; BMI 37.1
--- NOTE | 2025-10-08 00:55 | PTCARENOTE ---
Received patient at change of shift. V paced on the monitor, HR in the 60s. R radial CDI. No complaints from pt at this time, call rojas within reach.
[2025-10-08 03:58] LABS: Hematocrit 46.5 % (39.0-52.0); Hemoglobin 15.8 g/dL (13.0-18.0); Mean Corp Hgb Conc. 34.0 g/dL (33.0-37.0); Mean Corpuscular Volume 84.9 fL (80.0-94.0); Platelet Count 171 10^3/uL (130-400); Red Cell Dist. Width 14.3 % (11.5-14.5)
[2025-10-08 04:23] LABS: Blood Urea Nitrogen 20 mg/dl (9-20); Calcium 8.7 mg/dl (8.4-10.2); Carbon Dioxide 27 mmol/L (22-30); Chloride 106 mmol/L (98-107); Estimated Creatinine Clearance 81 ml/min; Glucose 105 mg/dl (70-99); Magnesium 2.1 mg/dl (1.6-2.3); Potassium 4.1 mmol/L (3.5-5.1); Sodium 139 mmol/L (135-145); eGFR 56.83
[2025-10-08] MEDS: SYNTHROID 137 MCG PO (06:29)
[2025-10-08] MEDS: CRESTOR 5 MG PO (08:20)
[2025-10-08] MEDS: ASPIRIN PO ×2 (08:20→10:58)
[2025-10-08] MEDS: PACERONE 400 MG PO ×3 (08:21→21:12)
[2025-10-08] MEDS: NORVASC 2.5 MG PO (08:21)
[2025-10-08] MEDS: THERAGRAN 1 TABLET PO (08:22)
--- NOTE | 2025-10-08 09:44 | W.PN.CARDCBS ---
Addendum entered and electronically signed by Chan Cox MD 10/08/25 11:06:
Patient seen and examined
Reviewed details of his sudden cardiac arrest prior to admission. Polymorphic VT in the field and a positive troponin. Cardiac catheterization results reviewed demonstrating no significant or obstructive coronary artery disease. I reviewed with
the patient who is a right handed computer applications instructor details of procedure and rationale for secondary prevention device. These include a 1 of thousand risk of as well as 1% risk of pneumothorax tamponade infection or bleeding. Will place
device left-sided with a single-chamber device as he appears to have a relatively reasonable sinus node and relative youth. I took time to answer all questions and he signed informed consent we will place the defibrillator later today under
conscious sedation.
Original Note:
Today's Communication / Plan
-
N.p.o. for ICD today
Continue oral amiodarone load
Echo today
Continue to monitor QTc with EKG
Continue to monitor electrolytes, renal function and LFTs, repeat CMP in am
Impression / Plan
-
PCP: Yvette Dee PA-C
Comb Winder: None prior to admission, initial consultation performed by Dr. Luis Fernando Goldsmith
Impression:
Presented 10/06/2025 with cardiac arrest
Status postcardiac arrest with possible torsades as initial rhythm
Chest pain worse with taking a deep breath possibly due to CPR
Abnormal troponin, peak 4.3
Hypertension
Sleep apnea
History of papillary carcinoma thyroid status post thyroidectomy
Renal insufficiency
Abnormal LFTs possible shock liver
Echo 10/08/2025: ordered
Cardiac catheterization 10/07/2025: LM: Patent. LAD: Mid 30 to 40% tubular stenosis. Left circumflex: Patent. RCA: Patent. Elevated LVEDP at 18 mmHg. No significant gradient across aortic valve to suggest aortic stenosis.
CT of chest 10/06/2025: Negative for pulmonary embolism
Impression:
-Presented 10/06/2025 with cardiac arrest requiring CPR, epinephrine, amiodarone with defibrillation x 8 with successful ROSC
-Considering cardiac arrest with CPR and multiple shocks patient overall looks well sitting in chair alert and oriented.
-Per review of telemetry strips from EMS possible torsades. Initially placed on IV amiodarone. Now on oral Amiodarone 400 mg 3 times daily load.
-Review of telemetry shows sinus rhythm with frequent PVCs and ventricular couplets
-Cardiac catheterization 10/07/2025 showed no significant obstructive coronary artery disease. Stop aspirin 325 mg.
-After discussion with patient and radiophone operator plan is to move forward with ICD 10/08/2025. Patient currently n.p.o.
-Echocardiogram ordered
-Abnormal troponin, peaked at 4.3. No significant coronary artery disease. Will treat as nonischemic myocardial injury secondary to CPR and multiple defibrillation/shocks
-Keep K greater than 4, mag greater than 2
- Abnormal LFTs suspect secondary to cardiac arrest/possible shock liver. Continue to monitor and trend. CMP ordered by me for tomorrow
- SON on CKD with peak creatinine 1.6. Currently 1.4. Continue to monitor and trend, CMP ordered by me for tomorrow. Baseline creatinine appears to be 1.2-1.3
Plan discussed with patient, patient's at bedside, hospitalist and nursing
Progress Note - Comb Winder
Subjective
Date of Service: October 08, 2025
Patient seen and examined. Patient's at bedside. Patient overall feels well. Denies chest pain or shortness of breath. Denies additional episodes of dizziness or lightheadedness.
Objective
Labs:
10/08/25 03:44
10/08/25 03:43
Labs
Hgb 15.8 g/dL (13.0-18.0) 10/08/25 03:44
Hct 46.5 % (39.0-52.0) 10/08/25 03:44
Plt Count 171 10^3/uL (130-400) 10/08/25 03:44
PT 15.4 Sec (11.4-14.6) H 10/06/25 15:54
INR 1.21 10/06/25 15:54
APTT Cancelled 10/08/25 05:00
Sodium 139 mmol/L (135-145) 10/08/25 03:43
Potassium 4.1 mmol/L (3.5-5.1) 10/08/25 03:43
BUN 20 mg/dl (9-20) 10/08/25 03:43
Creatinine 1.4 mg/dL (0.7-1.3) H 10/08/25 03:43
Glucose 105 mg/dl (70-99) H 10/08/25 03:43
Troponins
10/06/25 10/06/25 10/06/25
14:30 18:08 21:08
Troponin I 0.048 H* 2.520 H* D 4.280 H* D
10/06/25 10/06/25 10/07/25
23:57 23:57 04:12
Troponin I 4.300 H* Cancelled 3.020 H* D
Vital Signs and I&O:
Vital Signs
Temp Pulse Resp BP Pulse Ox
98.2 F 56 18 152/89 95
10/08/25 08:10 10/08/25 06:00 10/08/25 08:10 10/08/25 03:32 10/08/25 08:10
Vital Signs
Temp Pulse Resp BP Pulse Ox
98.2 F 56 18 152/89 95
10/08/25 08:10 10/08/25 06:00 10/08/25 08:10 10/08/25 03:32 10/08/25 08:10
Intake & Output
10/06/25 10/07/25 10/08/25 10/09/25
06:59 06:59 06:59 06:59
Intake Total 1693.6 / 1823.3 811.9 / 811.9
Output Total 900 / 900 1700 / 1700
Balance 793.6 / 923.3 -888.1 / -888.1
Physical Exam
Physical Exam
GEN: No distress, awake, Ox3
HEENT: supple, anicteric, mmm
LUNGS: CTA, no wheezes/rales
CV: Reg, S1/S2, no murmur, rub or gallop
ABD: soft, BS+, NT/ND
EXT: No edema, clubbing or cyanosis
NEURO: Gross non-focal
SKIN: No rash, warm, dry, pink
--- NOTE | 2025-10-08 10:34 | CM ---
Reviewed chart. Met with and Mrs. Zuniga to review discharge plans. He states he is going for an ICD Placement Prior to admission he resides with his spouse in a two story home with two steps to enter. He has a full flight of steps to get
to bedroom/full bathroom. He has a powder room on the first floor. Prior to admission he was independent with ambulation and adls. He has a CPAP Machine at home. He has a prescription plan. Medical work up in progress. The discharge plan is to
return home with his spouse when medically stable.
--- NOTE | 2025-10-08 10:57 | PN.CDI ---
CDI
- -
CDI:
Physician Documentation Request
Admit Date: 10/06/25 17:06
Dear Doctor Rambo,
Clinical Indicators:
Patient admitted post cardiac arrest.
ED report, ' Vitals are notable for hypoxia which is requiring nasal cannula'
10/06 (19:30) RN note, 'on 6L via nasal canula 93%'
RR trend on admission:
10/06/25
14:36 10/06/25
15:00 10/06/25
16:00
Resp Rate 30 25 29
10/06/25
17:00 10/06/25
18:30 10/06/25
19:00
Resp Rate 28 25 28
02 requirements:
10/06/25
14:31 10/06/25
19:20 10/06/25
20:30
Nasal Cannula flow liters per minute 6 6 6
10/07/25
03:30
Nasal Cannula flow liters per minute 6
Please clarify which of the following accurately represents the patient's respiratory status:
Acute hypoxic respiratory failure, resolved
Hypoxia only
Other, please specify
Additional information for Respiratory Failure:
Recognized criteria for Respiratory Failure (Source: Angel Escobedo 2018September 12.
Documentation tips: Acute Respiratory Failure, The Hospitalist.)
ABGs: (1 or more) Symptoms Please indicate type if known
1. p)2 <60 or RA SPO2 <91% on RA 1. Tachypnea, SOB, dyspnea Hypoxic
2. pCO2 >45 and pH <7.35 2. Use of accessory muscles Hypercapnic
3. pO2 decrease of pCO2 increase by 3. Pallor or cyanosis Hypoxic and Hypercapnic
10 mmHg from baseline if known 4. Anxiety or restlessness Unable to determine
4. P/F Ratio (pO2/FiO2)unless than 300 5. Unable to speak in full sentences
Use of terms such as suspected, likely, concern for, or probable (associated with a specific diagnosis that is being evaluated, monitored, or treated as if it exists) are acceptable and can be coded in the inpatient setting, when documented at the
time of discharge.
Thank you,
CHANDU Montes RN
CDI Specialist
available via tiger text
Please use your independent medical judgment in providing your response.
--- NOTE | 2025-10-08 13:31 | PTCARENOTE ---
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 Pt went over to EP lab for ICD implant.
--- NOTE | 2025-10-08 13:49 | W.PN.HOSP.TC ---
Addendum entered and electronically signed by Geoff Ricks MD 10/08/25 14:15:
Acute hypoxic respiratory failure, resolved
Original Note:
Today's Communication/Plan
-
N.p.o.
ICD placement today
Assessment / Plan
Assessment / Plan
General: Well Developed, Well Nourished and No Apparent Distress
HEENT: Normocephalic and Atraumatic
Respiratory: Clear to Auscultation
Cardiac: Regular Rhythm and S1/S2
GI: Soft, Nontender, Nondistended and Normal Bowel Sounds
Genito-urinary: No Costovertebral Tender
Musculoskeletal: No Clubbing, No Cyanosis and No Edema
Skin: Warm and Dry
Neuro: Awake and AO x 3
Psych: Calm
Postcardiac arrest with initial rhythm suspected to be torsades
S/p defibrillation multiple times
Continue oral amnio per cardiology
Obtain 2D echocardiogram
S/p LHC
Plan for ICD, indication primary prevention cardiac arrest
Monitor on telemetry
Hypertension
Continue antihypertensives
Hypothyroidism
Continue levothyroxine
Hyperlipidemia
Continue Crestor
at bedside updated
Anticipated Discharge: 24 - 48 hours
Subjective/Interval History
-
Date of Service: October 08, 2025
Seen and examined. No new complaints. No acute overnight events
Still little foggy from yesterday
Discussed left heart catheterization with nonobstructive disease. Mid LAD 30 to 40% stenosed
Objective Data
-
Labs:
Laboratory Results
10/08/25 10/08/25 10/08/25
03:43 03:44 05:00
WBC 10.9 H
Hgb 15.8
Hct 46.5
Plt Count 171
APTT Cancelled
Sodium 139
Potassium 4.1
Chloride 106
Carbon Dioxide 27
BUN 20
Creatinine 1.4 H
Glucose 105 H
Calcium 8.7
Vital Signs:
Vital Signs
Temp Pulse Resp BP Pulse Ox
98.1 F 56 18 152/89 95
10/08/25 11:44 10/08/25 06:00 10/08/25 11:44 10/08/25 03:32 10/08/25 11:44
I&O
10/07/25 10/08/25 10/09/25
06:59 06:59 06:59
Intake Total 1693.6 / 1823.3 811.9 / 811.9
Output Total 900 / 900 1700 / 1700
Balance 793.6 / 923.3 -888.1 / -888.1
--- NOTE | 2025-10-08 14:55 | ITS.CL.ICD ---
[employer] - ICD
Implantable Cardioverter Defibrillator
Procedure Report:
Date of Procedure: 10/08/2025
Patient : 1965
Procedures: Single-chamber ICD implant
Indication: 1) secondary prevention device after sudden cardiac arrest documented with polymorphic VT VF arrest acute in the field with ICD shocks who presents after this event with survival to hospital and implantation of secondary prevention ICD
Implants:
Pulse Generator: Medtronic; Model# [id number]; Serial#�[id number]
Right Ventricular Lead: Medtronic; Model# [id number]; Serial# [id number]
Technique: The patient was prepped and draped in the usual fashion. Local anesthetic was applied to the left prepectoral subcutaneous tissue. A 4 inch incision was made. The left axillary vein was accessed��without difficulty. A subcutaneous pocket
was CREATED. Hemostasis was excellent. The right ventricular lead was placed at the right ventricular apex. 10 volt pacing did not capture the diaphragm. The leads were secured to the pectoralis muscle and fascia. The leads were appropriately
attached to the device. The pocket was irrigated with antibiotic solution. The device and leads were placed in the pocket and the device was secured to pectoralis muscle and facia. The incision was closed with absorbable sutures. The estimated blood
loss was minimal. There were no complications. Device based testing was performed as described below. IV contrast total: 5 cc.
System Analysis:
RV lead: R: 15 mV; Threshold: 0.4 V @ 0.5 ms; Impedance: 665 ohms. HV impedance 71 ohms
Final Programming: Tachy: VT/VF:188; Vladislav: VVI 40
Conclusion: Uncomplicated single-chamber ICD implant.
Recommendation: Routine ICD implant care
cc: Dr. Edwar Billy
[2025-10-08] MEDS: ANCEF 5 IV (21:12)
--- NOTE | 2025-10-08 21:40 | PTCARENOTE ---
Received patient at change of shift. SR with PVCs on the monitor, HR in the 60s. L chest Aquacel with scant drainage, marked. L arm immobilizer in place. No complaints from pt at this time, call rojas within reach.
[2025-10-09] MEDS: TYLENOL 650 MG PO (03:42)
[2025-10-09 03:44] VITALS: BP 168/91
[2025-10-09 03:46] VITALS: BMI 37.4
[2025-10-09 04:22] LABS: Hematocrit 41.9 % (39.0-52.0); Hemoglobin 14.3 g/dL (13.0-18.0); Mean Corp Hgb Conc. 34.1 g/dL (33.0-37.0); Mean Corpuscular Volume 82.0 fL (80.0-94.0); Platelet Count 160 10^3/uL (130-400); Red Cell Dist. Width 14.0 % (11.5-14.5)
[2025-10-09 04:47] LABS: ALT (SGPT) 73 U/L (0-50); AST (SGOT) 107 U/L (17-59); Albumin 3.6 g/dl (3.5-5.0); Alkaline Phosphatase 53 U/L (38-126); Blood Urea Nitrogen 18 mg/dl (9-20); Calcium 8.3 mg/dl (8.4-10.2); Carbon Dioxide 24 mmol/L (22-30); Chloride 104 mmol/L (98-107); Estimated Creatinine Clearance 87 ml/min; Glucose 99 mg/dl (70-99); Magnesium 1.8 mg/dl (1.6-2.3); Potassium 4.1 mmol/L (3.5-5.1); Sodium 136 mmol/L (135-145); Total Protein 6.2 g/dl (6.3-8.2); eGFR > 60.00
[2025-10-09] MEDS: ANCEF 5 IV (05:06)
[2025-10-09] MEDS: SYNTHROID 137 MCG PO (05:06)
[2025-10-09 05:07] VITALS: BP 162/95
[2025-10-09 05:13] VITALS: BP 166/87
[2025-10-09] MEDS: NORVASC 2.5 MG PO (05:30)
--- NOTE | 2025-10-09 05:42 | PTCARENOTE ---
Patient with BP 168/91 with vital signs, asymptomatic. HR in the 55-60 range. Pt complained of 2/10 pain at ICD site, PRN Tylenol administered, see DEC.
Rechecked BP 166/87, still without symptoms. Pain at ICD site now 11/02. SANA Saunders notified. 0800 Amlodipine administered early as per CONSTRUCTION CREW MEMBER.
[2025-10-09 06:46] VITALS: BP 145/85
[2025-10-09] MEDS: THERAGRAN 1 TABLET PO (08:27)
[2025-10-09] MEDS: PACERONE 400 MG PO (08:27)
[2025-10-09] MEDS: CRESTOR 5 MG PO (08:27)
--- NOTE | 2025-10-09 09:28 | PTCARENOTE ---
received patient this am sleeping in bed with his CPAP on. patient easily aroused and oriented x 3. monitor shows NSR with PVC's, INT x 2 flushed. LWC Acuseal has scant amount of old drainage noted, area tender to touch, patient remains in a sling.
instructed patient on post ICD instructions, patient verbalizes understanding. right radial dsg. D/I, distal pulse palpable. patient ordering breakfast.
[2025-10-09] MEDS: MAGNESIUM OXIDE 400 MG PO (11:41)
--- NOTE | 2025-10-09 11:46 | PTCARENOTE ---
magnesium po given as ordered.
[2025-10-09 11:47] VITALS: BP 150/79
--- NOTE | 2025-10-09 11:58 | W.PN.CARDCBS ---
Addendum entered and electronically signed by Nadir Blood DO 10/09/25 14:06:
I saw and examined the patient.
The Hr Administrative Assistant's note was reviewed and I agree with the note.
Comment:
Plan:
Stable for d/c from cardiac standpoint
s/p ICD
Cont Amio 200 mg BID for 2 weeks then 200 mg daily per EP
Check CMP and Mg 1 wk
Consideration for outpt cardiac MR after follow up was discussed
Discussed restrictions for ICD. Incision check in the office scheduled.
Cardiac catheterization reviewed
Driving restrictions reviewed
Discussed with his at bedside.
Primary service notified.
Original Note:
Today's Communication / Plan
-
ok for DC to home today
s/p ICD 10/08
continue amiodarone 200mg BID x2 weeks then decrease to 200mg daily
CMP/mag in 1 week
OP cardiac follow up arranged
Impression / Plan
-
PCP: Yvette Dee PA-C
Fire Control Technician: None prior to admission, initial consultation performed by Dr. Luis Fernando Goldsmith
Impression:
Presented 10/06/2025 with cardiac arrest
Status postcardiac arrest with possible torsades as initial rhythm
Chest pain worse with taking a deep breath possibly due to CPR
Abnormal troponin, peak 4.3
Hypertension
Sleep apnea
History of papillary carcinoma thyroid status post thyroidectomy
Renal insufficiency
Abnormal LFTs, suspected shock liver
Echo 10/08/2025: EF 55 to 60%, mild MR, mild TR, PAP 39 mmHg, no pericardial effusion
Cardiac catheterization 10/07/2025: LM: Patent. LAD: Mid 30 to 40% tubular stenosis. Left circumflex: Patent. RCA: Patent. Elevated LVEDP at 18 mmHg. No significant gradient across aortic valve to suggest aortic stenosis.
CT of chest 10/06/2025: Negative for pulmonary embolism
Impression:
-Presented 10/06/2025 with cardiac arrest requiring CPR, epinephrine, amiodarone with defibrillation x 8 with successful ROSC. Inciting rhythm felt to be torsades vs polymorphic VT/VF
-denies recent medication changes, new supplements
-Potassium on arrival was 3.6, mag was 2.5
-Doing remarkably well considering above
-Continue amiodarone, plan to transition to 200 mg twice daily for 2 weeks then decrease to 200 daily upon discharge
-Remains in sinus rhythm with occasional PVCs/couplets on review of tele overnight
-Troponin peaked at 4.3. Cardiac catheterization 10/07/2025 showed no significant obstructive coronary artery disease. Will treat as nonischemic myocardial injury secondary to CPR and multiple defibrillation/shocks
-Status post Medtronic single-chamber ICD 10/08/2025
-Chest x-ray 10/09 without pneumothorax
-Abnormal LFTs suspect secondary to cardiac arrest/possible shock liver. Continue to monitor and trend.
-SON on CKD this admission with peak creatinine 1.6. Currently 1.3, appears to be baseline
-CMP/magnesium in 1 week for reassessment of Cr/LFTs
-reviewed activity restrictions/limitations with patient post ICD
-NO DRIVING for 1 month
-will need cardiac MRI to further evaluate for etiology of presenting arrhythmia
-ok for DC to home today
-wound check appt next week arranged
-Plan discussed with patient, patient's at bedside, hospitalist and nursing
Progress Note - Fire Control Technician
Subjective
Date of Service: October 09, 2025
no issues overnight
Objective
Labs:
10/09/25 03:36
10/09/25 03:36
Labs
Hgb 14.3 g/dL (13.0-18.0) 10/09/25 03:36
Hct 41.9 % (39.0-52.0) 10/09/25 03:36
Plt Count 160 10^3/uL (130-400) 10/09/25 03:36
PT 15.4 Sec (11.4-14.6) H 10/06/25 15:54
INR 1.21 10/06/25 15:54
APTT Cancelled 10/08/25 05:00
Sodium 136 mmol/L (135-145) 10/09/25 03:36
Potassium 4.1 mmol/L (3.5-5.1) 10/09/25 03:36
BUN 18 mg/dl (9-20) 10/09/25 03:36
Creatinine 1.3 mg/dL (0.7-1.3) 10/09/25 03:36
Glucose 99 mg/dl (70-99) 10/09/25 03:36
Troponins
10/06/25 10/06/25 10/06/25
14:30 18:08 21:08
Troponin I 0.048 H* 2.520 H* D 4.280 H* D
10/06/25 10/06/25 10/07/25
23:57 23:57 04:12
Troponin I 4.300 H* Cancelled 3.020 H* D
Vital Signs and I&O:
Vital Signs
Temp Pulse Resp BP Pulse Ox
97.9 F 55 17 145/85 96
10/09/25 11:45 10/09/25 08:27 10/09/25 11:45 10/09/25 08:27 10/09/25 11:45
Vital Signs
Temp Pulse Resp BP Pulse Ox
97.9 F 55 17 145/85 96
10/09/25 11:45 10/09/25 08:27 10/09/25 11:45 10/09/25 08:27 10/09/25 11:45
Intake & Output
10/07/25 10/08/25 10/09/25 10/10/25
07:59 07:59 07:59 07:59
Intake Total 2053.0 / 2053.0 452.5 / 452.5
Output Total 900 / 900 1700 / 1700
Balance 1153.0 / 1153.0 -1247.5 / -1247.5
Physical Exam
Physical Exam
GEN: No distress, awake, alert, oriented x3. sitting in chair. obese
HEENT: supple, anicteric, mmm, eomi
LUNGS: CTA B/L, no wheezes/rales
CV: Reg, S1/S2, no murmur
ABD: soft, BS+, NT/ND
EXT: No cyanosis, clubbing, edema
NEURO: Gross non-focal
SKIN: Warm, pink, dry. No rash. IO access site RLE c/d/i. R wrist site soft, dressing c/d/i. L chest site with aquacel dressing c/d/i.
--- NOTE | 2025-10-09 14:24 | W.DCSUMMARY ---
Discharge Summary
Discharge Data
Date of Admission: 10/06/25
Date of Discharge: 10/09/25
-
Pending Results: No
Hospital Course
60 male history of sleep apnea, hyperlipidemia, CKD stage IIIa, thyroid cancer, hypertension and prediabetes
Was found down EMS called noted to have a shockable rhythm eventually ROSC was achieved and total downtime was approximately 20 minutes. Suspect torsades as the shockable rhythm per description. Was evaluated by cardiology due to slightly high
renal function left heart catheterization was not immediately completed however on the following day renal function did improve and was taken for a left heart catheterization that showed nonobstructive disease in the mid LAD of 30 to 40%. As this
was less than 70% no intervention was performed. Was on IV amiodarone and transition to oral amiodarone with amio 200mg BID [id number] then decrease amio 200mg daily and evaluated by electrophysiology for which a ICD was placed.
LHC
CONCLUSIONS
1. No obstructive coronary artery disease. Mid LAD has 30 to 40% tubular stenosis. PATSY-3 flow into the distal vessel
2. Elevated LVEDP at 18 mmHg
RECOMMENDATIONS
1. Wean radial band per protocol. Monitor right hand perfusion and for bleeding from the radial site following removal of the vascular-band following trans-radial access.
2. Continue aggressive medical therapy and risk factor modification for secondary CAD prevention.
3. Hydrate with normal saline to mitigate the risk of contrast-induced acute kidney injury.
4. Defer to electrophysiology as patient will likely need ICD prior to discharge for secondary prevention.
2d echo
SUMMARY
1. Normal left ventricular size and systolic function without regional wall motion abnormalities.. Mild concentric left ventricular hypertrophy estimated left ventricular ejection fraction is 55 to 60%. Diastolic function is indeterminate.
2. Normal right ventricular size and systolic function.
3. Mild mitral regurgitation.
4. Mild tricuspid regurgitation with estimated pulmonary artery systolic pressure of 39 mmHg, assuming a right atrial pressure of 3 mmHg.
5. No pericardial effusion.
6. No prior echocardiogram available for comparison.
Please take amiodarone 200mg twice daily for 2 weeks then decrease to 200mg daily!
Seen and examined the day of discharge which is 10/09/2025. No new complaints. No acute overnight events.
NAD
Scleral Anicteric
MMM
No JVD
CTABL
RRR, S1/S2
Soft, NT, ND, BS+
Warm, Dry
AAOx3
Calm
More than 30 minutes spent in discharge including
Final examination of the patient
Summarizing hospital stay
Instructions for continuing care to all relevant caregivers
Preparation of discharge records, prescriptions, and referral forms
Total time spent (in minutes): 33mins
Discharge Plan
-
Patient Disposition: Home with Home Care
Discharge Diagnosis/Procedures: Cardiac arrest, Cardiac cath 10/07, ICD implant 10/08
Activity: Other activity
Additional Activity: see device sheet
Driving Restrictions: No driving for 1 month!
Bathing Restrictions: OK to Shower
Blood Work: CMP/magnesium in 1 week
Other Services: PT, OT and Cardiac Rehab
Activity Restrictions/Additional Instructions:
Was found down EMS called noted to have a shockable rhythm eventually ROSC was achieved and total downtime was approximately 20 minutes. Suspect torsades as the shockable rhythm per description. Was evaluated by cardiology due to slightly high
renal function left heart catheterization was not immediately completed however on the following day renal function did improve and was taken for a left heart catheterization that showed nonobstructive disease in the mid LAD of 30 to 40%. As this
was less than 70% no intervention was performed. Was on IV amiodarone and transition to oral amiodarone with amio 200mg BID [id number] then decrease amio 200mg daily and evaluated by electrophysiology for which a ICD was placed.
LHC
CONCLUSIONS
1. No obstructive coronary artery disease. Mid LAD has 30 to 40% tubular stenosis. PATSY-3 flow into the distal vessel
2. Elevated LVEDP at 18 mmHg
RECOMMENDATIONS
1. Wean radial band per protocol. Monitor right hand perfusion and for bleeding from the radial site following removal of the vascular-band following trans-radial access.
2. Continue aggressive medical therapy and risk factor modification for secondary CAD prevention.
3. Hydrate with normal saline to mitigate the risk of contrast-induced acute kidney injury.
4. Defer to electrophysiology as patient will likely need ICD prior to discharge for secondary prevention.
2d echo
SUMMARY
1. Normal left ventricular size and systolic function without regional wall motion abnormalities.. Mild concentric left ventricular hypertrophy estimated left ventricular ejection fraction is 55 to 60%. Diastolic function is indeterminate.
2. Normal right ventricular size and systolic function.
3. Mild mitral regurgitation.
4. Mild tricuspid regurgitation with estimated pulmonary artery systolic pressure of 39 mmHg, assuming a right atrial pressure of 3 mmHg.
5. No pericardial effusion.
6. No prior echocardiogram available for comparison.
Please take amiodarone 200mg twice daily for 2 weeks then decrease to 200mg daily!
Stand Alone Forms: DC Instructions- Cath/EP Lab, DC Inst - Implanted Device, Return to Work
Referrals:
.[facility] [Provider Group] - 10/16/25 10:00 am
Referral Note: Incision check appointment
Yvette Dee PA [Family Provider, Family Practice]
Zohaib Lovell MD [Active, Pulmonary Medicine] - in three to four weeks
Prescriptions:
New
amiodarone 200 mg tablet
200 mg PO BID Qty: 28 0RF
amiodarone 200 mg tablet
200 mg PO DAILY Qty: 30 0RF
Rx Instructions:
start on 10/23 once twice a day dosing has been completed
Continued
levothyroxine 137 mcg tablet
137 mcg PO DAILY
therapeutic multivitamin Tablet
1 tab PO DAILY
amlodipine 2.5 mg tablet
2.5 mg PO DAILY
valsartan 320 mg tablet
320 mg PO DAILY
rosuvastatin 5 mg tablet
5 mg PO DAILY
acetaminophen 500 mg tablet
1,000 mg PO DAILYPRN PRN (Reason: mild pain)
Discharge Orders:
Discharge Patient (As Directed); Ordered 10/09/25
Ordered By: Geoff Ricks
Care Plan Goals
Care Plan Goals:
Problem: Readiness for enhanced knowledge related to diagnosis and treatment plan
Goal: Understand your diagnosis and treatment plan needs, including medications if applicable.
Instructions: Know your diagnosis, underlying causes and treatment plan options, including medications if applicable. Consult with your health care team to learn about your diagnosis and treatment plan, including medications if applicable.
Discharge Date and Time
Print Language: MONGOLIAN
--- NOTE | 2025-10-09 14:38 | CM ---
pt refused VN, he is indep and not homebound.
[2025-10-09 15:33] VITALS: BP 152/70
--- NOTE | 2025-10-09 15:33 | PTCARENOTE ---
D/C instructions given to patient and , both verbalizes understanding. patient refuses VN. right wrist dsg, D/I, distal pulse palpable. LCW Acuseal intact. Telemetry D/C'd, INT x 2 D/C'd, personal belongings packed and sent home with patient.
D/C to home via wc accompanied by staff.
== END 2025-10-09 15:37 | disposition home or self-care (01) | DRG 275 ==
LOC: IVU 17:06
PROVIDERS: Internal Medicine Cardiovascular Disease; Internal Medicine Critical Care Medicine; Internal Medicine Interventional Cardiology; Nurse Practitioner Adult Health; Nurse Practitioner Family; Physician Assistant Medical; ADMITTING PHYSICIAN Internal Medicine; ATTENDING PHYSICIAN Hospitalist; EMERGENCY PHYSICIAN Student in an Organized Health Care Education/Training Program; FAMILY PHYSICIAN Physician Assistant Medical; OTHER PHYSICIAN Internal Medicine; OTHER PHYSICIAN Internal Medicine Cardiovascular Disease
PROC: 5A09357 Assistance with Respiratory Ventilation, Less than 24 Consecutive Hours, Continuous Positive Airway Pressure (ICD-10-PCS; 2025-10-06)
PROC: 4A023N7 Measurement of Cardiac Sampling and Pressure, Left Heart, Percutaneous Approach (ICD-10-PCS; 2025-10-07)
PROC: B2111ZZ Fluoroscopy of Multiple Coronary Arteries using Low Osmolar Contrast (ICD-10-PCS; 2025-10-07)
PROC: 0JH608Z Insertion of Defibrillator Generator into Chest Subcutaneous Tissue and Fascia, Open Approach (ICD-10-PCS; 2025-10-08)
PROC: 02HK3KZ Insertion of Defibrillator Lead into Right Ventricle, Percutaneous Approach (ICD-10-PCS; 2025-10-08)
DX: I47.21 Torsades de pointes (principal); J96.01 Acute respiratory failure with hypoxia; K72.00 Acute and subacute hepatic failure without coma; I13.0 Hypertensive heart and chronic kidney disease with heart failure and stage 1 through stage 4 chronic kidney disease, or unspecified chronic kidney disease; I5A Non-ischemic myocardial injury (non-traumatic); N17.9 Acute kidney failure, unspecified; R42 Dizziness and giddiness; I46.2 Cardiac arrest due to underlying cardiac condition; G47.33 Obstructive sleep apnea (adult) (pediatric); N18.31 Chronic kidney disease, stage 3a; E89.0 Postprocedural hypothyroidism; E66.9 Obesity, unspecified; R41.3 Other amnesia; I47.29 Other ventricular tachycardia; R91.1 Solitary pulmonary nodule; E78.00 Pure hypercholesterolemia, unspecified; R73.03 Prediabetes; I49.3 Ventricular premature depolarization; D72.829 Elevated white blood cell count, unspecified; W18.39XA Other fall on same level, initial encounter; Y93.89 Activity, other specified; Y92.9 Unspecified place or not applicable; Z85.850 Personal history of malignant neoplasm of thyroid; Z79.890 Hormone replacement therapy; Z79.82 Long term (current) use of aspirin; Z79.899 Other long term (current) drug therapy; Z90.49 Acquired absence of other specified parts of digestive tract; Z80.1 Family history of malignant neoplasm of trachea, bronchus and lung; Z80.0 Family history of malignant neoplasm of digestive organs; Z68.37 Body mass index [BMI] 37.0-37.9, adult
CPT/HCPCS: 33249; 70450; 71045; 71275; 72125; 80048; 80053; 80061; 82962; 83036; 83735; 84439; 84443; 84484; 85025; 85027; 85610; 85730; 86850; 86900; 86901; 93005; 93306; 93458; 96374; 96375; 99152; 99153; 99291; C1721; C1769; C1777; C1892; J0282; Q9950; Q9967